=== PATIENT | male | born 1990 | race Two or more races ===

== ENCOUNTER 2024-10-11 08:45 | Emergency (ER) | payer OTHER ==
[~2024-10-11] VITALS: Ht 172.7 cm; Wt 108.9 kg
[2024-10-11] MEDS ORDERED: PRAMIPEXOLE E2.25 MG PO (08:59)
[2024-10-11] MEDS ORDERED: CARBIDOPA-LEVO1 EAC1 PO (08:59)
[2024-10-11] MEDS ORDERED: ATORVASTATIN CA10 MG PO (08:59)
[2024-10-11] MEDS ORDERED: CEFTRIAXONE SODIUM 1,000 MG VIAL IM ONE (09:30)
[2024-10-11] MEDS ORDERED: KETOROLAC TROMETHAMINE 60 MG VIAL IM ONE (09:30)
[2024-10-11] MEDS ORDERED: TETANUS & DIPHTHERIA TOX,ADULT 0.5 ML VIAL IM ONE (09:30)
[2024-10-11] MEDS ORDERED: CEPHALEXIN750 MG PO (10:30)
[2024-10-11] MEDS ORDERED: PEPCID AC20 MG PO (10:30)
== END 2024-10-11 11:50 | disposition home or self-care (01) ==
LOC: ER 08:47
DX: S51.851A Open bite of right forearm, initial encounter (principal); W55.01XA Bitten by cat, initial encounter; Y93.89 Activity, other specified; Y92.89 Other specified places as the place of occurrence of the external cause; Y99.8 Other external cause status
CPT/HCPCS: 73090; 73110; 90471; 90714; 96372; 99283; J0696; J1670; J1885